=== PATIENT | female | born 1955 | race Caucasian/White ===

== ENCOUNTER 2017-12-28 08:55 | Day surgery (SDC) | payer OTHER, SELFPAY ==
[2017-12-28] MEDS: CATARACT EYE COMPOUND (10 DROPS/SYRINGE) 3 DROPS EYE-OP (09:47)
[2017-12-28] MEDS: PROPARACAINE 0.5% OPHTH SOL 2 DROPS EYE-OP (09:48)
[2017-12-28 09:49] VITALS: BP 112/78; PULSE 60; RESP 12; TEMP 36.4; O2SAT 98; BMI 34.2
[2017-12-28 10:11] VITALS: BMI 34.2
--- NOTE | 2017-12-28 10:31 | PM.PREOP ---
Pre-operative Note Interval Note Changes: No
--- NOTE | 2017-12-28 10:32 | P.OP_ITS ---
Operative Date/Time/Diagnoses Pre-op diagnosis: Nuclear cataract right eye Procedure & Clinicians Procedure: Cataract Surgery Same procedure as scheduled: Yes Surgeon: Anthony Villagomez Anesthesia Type: MAC +/- and Sedation Operative Notes Procedure in detail: Patient brought to the operating suite. Tetracaine drops placed in the right eye. Patient was prepped and draped in sterile manner. Wire lid speculum was placed in the eye. Betadine drops were placed on the eye. This was irrigated. Lidocaine jelly was placed on the eye. A paracentesis port was created with a side-port blade. 0.1 mL 1% preservative free lidocaine was injected into the anterior chamber. The anterior chamber was deepened with viscoelastic. 2.6 mm keratome was used to create a temporal clear corneal incision. Cystotome and Utrata forceps were used to create continuous tear capsulorrhexis. Balanced salt solution was used to hydro dissect the nucleus. The phacoemulsification handpiece was inserted and the nucleus was removed using the stop and chop technique. The irrigation aspiration handpiece was inserted and the remaining cortex was removed. Anterior chamber was deepened with viscoelastic. An Alanis ZCB00 intraocular lens with a power of 23.0 was injected into the capsular bag. Irrigation aspiration handpiece was inserted and the remaining viscoelastic was removed. Incision was hydrated with balanced salt solution and found to be leak free with pressure with Weck- Pauly sponges. 0.1 mL Vigamox injected anterior chamber. 0.3 mL Kenalog 10 mg was injected subconjunctivally. Lid speculum was removed. The patient left the operating room in excellent condition. Complications: none Condition: stable Disposition: same day surgery
--- NOTE | 2017-12-28 10:32 | P.OP.PRE_ITS ---
Pre-operative Note Interval Note Changes: No
[2017-12-28] MEDS: MOXIFLOXACIN OPHTH DROPS 3 ML BOTTLE 2 DROPS INJ (11:15)
[2017-12-28] MEDS: PHENYLEPHRINE/LIDOCAINE VIAL (OR) 0.2 ML EYE-OP (11:15)
[2017-12-28] MEDS: TETRACAINE 0.5% OPHTH DROPS 15 ML 2 DROPS EYE-RIGHT (11:16)
[2017-12-28] MEDS: TRIAMCINOLONE 50 MG/5 ML VIAL INJ (11:16)
[2017-12-28] MEDS: LIDOCAINE JELLY 2% 5 ML 1 APPLIC TOP (11:16)
[2017-12-28] MEDS: BALANCED SALT IRRIG SOLN NO.2 500 ML, EPINEPHrine 1 MG IRR (11:17)
[2017-12-28] MEDS: CHONDROIDTIN/SOD HYALURONATE 1.05 ML SYRINGE INTRAOCULA (11:17)
[2017-12-28 11:26] VITALS: BP 127/79; PULSE 54; RESP 16; TEMP 36.3; O2SAT 99
== END 2017-12-28 11:33 ==
LOC: OR 08:56
PROVIDERS: PCP Physician Assistant Medical; Visit Provider Ophthalmology
DX: H25.11 Age-related nuclear cataract, right eye (principal); I10 Essential (primary) hypertension
CPT/HCPCS: J0171; J2250; J3010; J3301

== ENCOUNTER 2018-01-11 07:48 | Day surgery (SDC) | payer OTHER, SELFPAY ==
[2018-01-11] MEDS: PROPARACAINE 0.5% OPHTH SOL 2 DROPS EYE-OP (08:25)
[2018-01-11] MEDS: CATARACT EYE COMPOUND (10 DROPS/SYRINGE) 3 DROPS EYE-OP (08:30)
[2018-01-11 08:39] VITALS: BP 139/84; PULSE 71; RESP 16; TEMP 36.2; O2SAT 97; BMI 34.2
--- NOTE | 2018-01-11 09:23 | P.OP_ITS ---
Operative Date/Time/Diagnoses Pre-op diagnosis: Nuclear Cataract Left eye Post-op diagnosis: same Procedure & Clinicians Surgeon: Anthony Villagomez Anesthesia Type: MAC +/- and Sedation Operative Notes Procedure in detail: Patient brought to the operating suite. Tetracaine drops placed in the left eye. Patient was prepped and draped in sterile manner. Wire lid speculum was placed in the eye. Betadine drops were placed on the eye. This was irrigated. Lidocaine jelly was placed on the eye. A paracentesis port was created with a side-port blade. 0.1 mL 1% preservative free lidocaine was injected into the anterior chamber. The anterior chamber was deepened with viscoelastic. 2.6 mm keratome was used to create a temporal clear corneal incision. Cystotome and Utrata forceps were used to create continuous tear capsulorrhexis. Balanced salt solution was used to hydro dissect the nucleus. The phacoemulsification handpiece was inserted and the nucleus was removed using the stop and chop technique. The irrigation aspiration handpiece was inserted and the remaining cortex was removed. Anterior chamber was deepened with viscoelastic. An Alanis ZCB00 intraocular lens with a power of 23.0 was injected into the capsular bag. Irrigation aspiration handpiece was inserted and the remaining viscoelastic was removed. Incision was hydrated with balanced salt solution and found to be leak free with pressure with Weck- Pauly sponges. 0.1 mL Vigamox injected anterior chamber. 0.3 mL Kenalog 10 mg was injected subconjunctivally. Lid speculum was removed. The patient left the operating room in excellent condition. Complications: none Condition: stable Disposition: same day surgery
--- NOTE | 2018-01-11 09:23 | P.OP.PRE_ITS ---
Pre-operative Note Interval Note Changes: No
--- NOTE | 2018-01-11 09:23 | PM.PREOP ---
Pre-operative Note Interval Note Changes: No
[2018-01-11] MEDS: CHONDROIDTIN/SOD HYALURONATE 1.05 ML SYRINGE INTRAOCULA (09:33)
[2018-01-11] MEDS: LIDOCAINE JELLY 2% 5 ML 1 APPLIC TOP (09:33)
[2018-01-11] MEDS: MOXIFLOXACIN OPHTH DROPS 3 ML BOTTLE 2 DROPS INJ (09:34)
[2018-01-11] MEDS: TETRACAINE 0.5% OPHTH DROPS 15 ML 2 DROPS EYE-LEFT (09:34)
[2018-01-11] MEDS: PHENYLEPHRINE/LIDOCAINE VIAL (OR) 0.2 ML EYE-OP (09:34)
[2018-01-11] MEDS: BALANCED SALT IRRIG SOLN NO.2 500 ML, EPINEPHrine 1 MG IRR (09:35)
[2018-01-11] MEDS: TRIAMCINOLONE 50 MG/5 ML VIAL INJ (09:35)
[2018-01-11 09:55] VITALS: BP 135/64; PULSE 65; RESP 14; TEMP 36.8; O2SAT 99
== END 2018-01-11 10:00 | disposition home or self-care (01) ==
LOC: OR 07:49
PROVIDERS: PCP Physician Assistant Medical; Visit Provider Ophthalmology
DX: H25.12 Age-related nuclear cataract, left eye (principal); I10 Essential (primary) hypertension
CPT/HCPCS: J0171; J2250; J3010; J3301